=== PATIENT | male | born 1985 | race Caucasian/White ===

== ENCOUNTER 2024-08-09 20:04 | Emergency (ER) | payer BC ==
[2024-08-09] MEDS: Diphtheria,Pertussis(Acell),Tetanus Vaccine 0.5 ML Syringe IM ONE (21:41)
[2024-08-09] MEDS: Lidocaine 1% 5 ML VIAL INJECT ONE (21:41)
== END 2024-08-09 22:28 | disposition home or self-care (01) ==
LOC: MW.ED 20:04
DX: S61.211A Laceration without foreign body of left index finger without damage to nail, initial encounter (principal); Z23 Encounter for immunization; X58.XXXA Exposure to other specified factors, initial encounter
CPT/HCPCS: 12002; 90471; 90715; 99282-25; J3490